=== PATIENT | male | born 1980 | race Caucasian/White ===

== ENCOUNTER 2020-12-03 14:36 | Inpatient (IN) | payer MEDICAID, SELFPAY ==
[~2020-12-03] VITALS: Ht 180.3 cm; Wt 63.5 kg
[2020-12-03 14:42] VITALS: BP 98/74
[2020-12-03] MEDS ORDERED: LORazepam 2 MG/ML VIAL IM ONE (15:30)
[2020-12-03] MEDS ORDERED: BUDE0.5S IH (16:35)
[2020-12-03] MEDS ORDERED: MONT4CTB PO (16:35)
[2020-12-03] MEDS ORDERED: LEVA0.6318 INH (16:35)
[2020-12-03] MEDS ORDERED: TRAM50TA1 PO (16:35)
[2020-12-03] MEDS ORDERED: CARB200T1 PO (16:35)
[2020-12-03] MEDS ORDERED: OMEP20EC11 PO (16:35)
[2020-12-03] MEDS ORDERED: ATRN INH (16:35)
[2020-12-03] MEDS ORDERED: ACET-1182 PO (16:35)
[2020-12-03] MEDS ORDERED: IBUP100T4 PO (16:35)
[2020-12-03] MEDS ORDERED: FERR325E14 PO (16:35)
[2020-12-03] MEDS ORDERED: TRAZ-343 PO (16:35)
[2020-12-03] MEDS ORDERED: ALBU1.25 IH (16:35)
[2020-12-03] MEDS ORDERED: ASCO500T95 PO (16:35)
[2020-12-03] MEDS ORDERED: FAMO-90 PO (16:35)
[2020-12-03] MEDS ORDERED: FLUT1DSK IH (16:35)
[2020-12-03 16:49] LABS: BASOPHILS # (AUTO) 0.1 K/uL (0.00-0.22); EOSINOPHILS # (AUTO) 1.7 K/uL (0-0.4); EOSINOPHILS % (AUTO) 19.3 % (0.0-4.0); HEMATOCRIT 42.1 % (36-52); LYMPHOCYTES # (AUTO) 1.8 K/uL (2.0-11.5); LYMPHOCYTES % (AUTO) 19.6 % (20.5-51.1); MEAN CORPUSCULAR HEMOGLOBIN 30 pg (27-31); MEAN CORPUSCULAR HGB CONC 33 g/dL (33-37); MONOCYTES # (AUTO) 1.3 K/uL (0.8-1.0); MONOCYTES % (AUTO) 14.1 % (1.7-9.3); NEUTROPHILS # (AUTO) 4.1 K/uL (1.8-7.7); PLATELET COUNT (AUTO) 318 K/uL (140-450); RED BLOOD CELL COUNT(AUTO) 4.73 MIL/uL (4.20-6.10); RED CELL DISTRIBUTION WIDTH 14.6 % (11.6-13.7)
[2020-12-03 16:58] LABS: ANION GAP 10.6 (8-16); CARBON DIOXIDE 31.7 mmol/L (21-32); CREATININE 0.9 mg/dL (0.6-1.3); POTASSIUM 4.3 mmol/L (3.5-5.1)
[2020-12-03 17:01] LABS: PROTHROMBIN TIME 9.9 secs (10.8-13.4)
[2020-12-03 17:05] LABS: ALBUMIN 3.4 g/dL (3.4-5.0); TOTAL BILIRUBIN 0.2 mg/dL (0.0-1.0)
[2020-12-03] MEDS ORDERED: MIDAZOLAM 2 MG/2 ML VIAL IM ONE (18:10)
[2020-12-03] MEDS ORDERED: HALOPERIDOL IM 5 MG/ML VIAL IM ONE (18:10)
[2020-12-03 19:51] LABS: APPEARANCE,URINE CLEAR (CLEAR); BILIRUBIN,URINE NEGATIVE (NEGATIVE); BLOOD, URINE TRACE-I (NEGATIVE); COLOR,URINE YELLOW (YELLOW); LEUKOCYTE ESTERASE ,URINE NEGATIVE (NEGATIVE); NITRITE, URINE NEGATIVE (NEGATIVE); PH,URINE 6.5 (5.0-9.0); UGLUCOSE NEGATIVE (NEGATIVE)
[2020-12-03 20:11] LABS: RBC,URINE 0-5 /HPF (0-5); WBC,URINE 0-5 /HPF (0-5)
[2020-12-03] MEDS ORDERED: ALBUTEROL SULFATE/IPRATROPIU 3 ML SOL IH ONE (21:00)
[2020-12-04] MEDS ORDERED: methylPREDNISolone SS 125 MG/2 ML VIAL IVP SCH (02:05)
[2020-12-04] MEDS ORDERED: LEVALBUTEROL 0.63 MG/3 ML NEBU INH PRN (02:30)
[2020-12-04] MEDS ORDERED: traMADol 50 MG TAB PO PRN (02:30)
[2020-12-04] MEDS ORDERED: IBUPROFEN 600 MG TAB PO PRN (02:30)
[2020-12-04] MEDS ORDERED: ACETAMINOPHEN 325 MG TAB PO PRN (02:30)
[2020-12-04] MEDS ORDERED: AZITHROMYCIN 500 MG in DEXTROSE 5% 250 ML IV SCH (02:30)
[2020-12-04] MEDS ORDERED: LORazepam 2 MG/ML VIAL IVP PRN (02:30)
[2020-12-04] MEDS ORDERED: ALBUTEROL 0.083% 2.5 MG/3 ML NEBU INH PRN (02:30)
[2020-12-04] MEDS ORDERED: ONDANSETRON 4 MG/2 ML VIAL IVP PRN (02:30)
[2020-12-04 04:00] VITALS: BP 105/66
[2020-12-04] MEDS ORDERED: cefTRIAXone 1,000 MG VIAL ONE (04:01)
[2020-12-04 04:27] LABS: HEMATOCRIT 39.7 % (36-52); HEMOGLOBIN 13.4 g/dL (12.0-18.0); MEAN CORPUSCULAR HEMOGLOBIN 30 pg (27-31); MEAN CORPUSCULAR HGB CONC 34 g/dL (33-37); MEAN CORPUSCULAR VOLUME 87.9 fL (80-94); PLATELET COUNT (AUTO) 271 K/uL (140-450); RED BLOOD CELL COUNT(AUTO) 4.52 MIL/uL (4.20-6.10); RED CELL DISTRIBUTION WIDTH 14.6 % (11.6-13.7); WHITE BLOOD COUNT (AUTO) 7.8 K/uL (4.8-10.8)
[2020-12-04] MEDS ORDERED: AZITHROMYCIN 500 MG INJ VIAL IV ONE (05:02)
[2020-12-04 05:14] LABS: ANION GAP 6.9 (8-16); CREATININE 0.9 mg/dL (0.6-1.3); POTASSIUM 3.9 mmol/L (3.5-5.1)
[2020-12-04 05:31] LABS: EOSINOPHILS % (MANUAL) 23 % (0-4); LYMPHOCYTES % (MANUAL) 19 % (20-46); MONOCYTES % (MANUAL) 5 % (5-12)
[2020-12-04] MEDS: IPRATROPIUM 0.02% 0.5 MG/2.5 ML NEBU INH SCH ×3 (05:34→20:42)
[2020-12-04 08:00] VITALS: BP 143/85
[2020-12-04] MEDS ORDERED: SALMETEROL IH SCH (09:00)
[2020-12-04] MEDS ORDERED: NON-FORMULARY ITEM (Omeprazole* (Prilosec*) 20 MG) PO SCH (09:00)
[2020-12-04] MEDS ORDERED: FLUTICASONE IH SCH (09:00)
[2020-12-04] MEDS: PANTOPRAZOLE 40 MG TABEC PO SCH (09:10)
[2020-12-04] MEDS: ASCORBIC ACID 500 MG TAB PO SCH ×2 (09:10→20:59)
[2020-12-04] MEDS: FAMOTIDINE 20 MG TAB PO SCH ×2 (09:10→21:00)
[2020-12-04] MEDS: carBAMazepine 200 MG TAB PO SCH ×2 (09:11→21:00)
[2020-12-04] MEDS: FERROUS SULFATE 325 MG TABEC PO SCH (09:23)
[2020-12-04] MEDS: BUDESONIDE 0.5 MG/2 ML NEBU INH SCH ×2 (09:27→20:42)
[2020-12-04 12:00] VITALS: BP 116/62
[2020-12-04 16:00] VITALS: BP 122/73
[2020-12-04] MEDS: MONTELUKAST SODIUM 10 MG TAB PO SCH (16:30)
[2020-12-04 20:00] VITALS: BP 114/54
[2020-12-04] MEDS ORDERED: IPRATROPIUM 0.02% 0.5 MG/2.5 ML NEBU INH ONE (20:29)
[2020-12-04] MEDS ORDERED: CRUSHER, PILL MC ONE (20:51)
[2020-12-04] MEDS: traZODone 50 MG TAB PO SCH (20:59)
[2020-12-05] VITALS: BP 106/65
[2020-12-05 04:00] VITALS: BP 113/60
[2020-12-05] MEDS: IPRATROPIUM 0.02% 0.5 MG/2.5 ML NEBU INH SCH ×3 (04:52→21:48)
[2020-12-05 05:50] LABS: BASOPHILS # (AUTO) 0.1 K/uL (0.00-0.22); BASOPHILS % (AUTO) 0.8 % (0.0-2.0); EOSINOPHILS # (AUTO) 1.1 K/uL (0-0.4); EOSINOPHILS % (AUTO) 11.8 % (0.0-4.0); HEMATOCRIT 42.4 % (36-52); HEMOGLOBIN 14.2 g/dL (12.0-18.0); LYMPHOCYTES # (AUTO) 2.1 K/uL (2.0-11.5); LYMPHOCYTES % (AUTO) 23.7 % (20.5-51.1); MEAN CORPUSCULAR HEMOGLOBIN 30 pg (27-31); MEAN CORPUSCULAR HGB CONC 34 g/dL (33-37); MEAN CORPUSCULAR VOLUME 88.1 fL (80-94); MONOCYTES # (AUTO) 1.3 K/uL (0.8-1.0); NEUTROPHILS # (AUTO) 4.5 K/uL (1.8-7.7); NEUTROPHILS % (AUTO) 49.7 % (42.2-75.2); PLATELET COUNT (AUTO) 326 K/uL (140-450); RED BLOOD CELL COUNT(AUTO) 4.81 MIL/uL (4.20-6.10); RED CELL DISTRIBUTION WIDTH 14.1 % (11.6-13.7)
[2020-12-05 06:31] LABS: CARBON DIOXIDE 30.1 mmol/L (21-32); CREATININE 0.8 mg/dL (0.6-1.3)
[2020-12-05 07:11] LABS: ANION GAP 9.5 (8-16); POTASSIUM 3.6 mmol/L (3.5-5.1)
[2020-12-05 08:00] VITALS: BP 115/74
[2020-12-05] MEDS: PANTOPRAZOLE 40 MG TABEC PO SCH (08:41)
[2020-12-05] MEDS: FAMOTIDINE 20 MG TAB PO SCH ×2 (08:41→20:12)
[2020-12-05] MEDS: FERROUS SULFATE 325 MG TABEC PO SCH (08:41)
[2020-12-05] MEDS: ASCORBIC ACID 500 MG TAB PO SCH ×2 (08:41→20:12)
[2020-12-05] MEDS: carBAMazepine 200 MG TAB PO SCH ×2 (08:42→20:12)
[2020-12-05] MEDS: BUDESONIDE 0.5 MG/2 ML NEBU INH SCH ×2 (09:29→21:48)
[2020-12-05 12:00] VITALS: BP 120/72
[2020-12-05 16:00] VITALS: BP 103/68
[2020-12-05] MEDS: MONTELUKAST SODIUM 10 MG TAB PO SCH (16:43)
[2020-12-05] MEDS ORDERED: LOVENOX 1MG/KG Q24H SUBQ SCH (19:25)
[2020-12-05 20:00] VITALS: BP 120/70
[2020-12-05] MEDS: ENOXAPARIN 60 MG/0.6 ML SYR SUBQ SCH (20:12)
[2020-12-05] MEDS: traZODone 50 MG TAB PO SCH (20:12)
[2020-12-06] VITALS: BP 112/72
[2020-12-06 04:00] VITALS: BP 147/93
[2020-12-06 07:01] LABS: ALBUMIN 3.4 g/dL (3.4-5.0); CARBON DIOXIDE 30.7 mmol/L (21-32); CREATININE 0.9 mg/dL (0.6-1.3); POTASSIUM 3.7 mmol/L (3.5-5.1); TOTAL BILIRUBIN 0.3 mg/dL (0.0-1.0)
[2020-12-06 07:11] LABS: HEMATOCRIT 42.2 % (36-52); HEMOGLOBIN 14.2 g/dL (12.0-18.0); MEAN CORPUSCULAR HEMOGLOBIN 30 pg (27-31); MEAN CORPUSCULAR HGB CONC 34 g/dL (33-37); MEAN CORPUSCULAR VOLUME 88.1 fL (80-94); PLATELET COUNT (AUTO) 312 K/uL (140-450); RED BLOOD CELL COUNT(AUTO) 4.79 MIL/uL (4.20-6.10); RED CELL DISTRIBUTION WIDTH 14.1 % (11.6-13.7)
[2020-12-06 07:49] LABS: EOSINOPHILS % (MANUAL) 25 % (0-4); LYMPHOCYTES % (MANUAL) 30 % (20-46); MONOCYTES % (MANUAL) 15 % (5-12)
[2020-12-06 08:00] VITALS: BP 144/67
[2020-12-06] MEDS: IPRATROPIUM 0.02% 0.5 MG/2.5 ML NEBU INH SCH (08:15)
[2020-12-06] MEDS: BUDESONIDE 0.5 MG/2 ML NEBU INH SCH (09:00)
[2020-12-06] MEDS: FAMOTIDINE 20 MG TAB PO SCH (09:54)
[2020-12-06] MEDS: carBAMazepine 200 MG TAB PO SCH (09:54)
[2020-12-06] MEDS: ENOXAPARIN 60 MG/0.6 ML SYR SUBQ SCH (09:55)
[2020-12-06] MEDS: FERROUS SULFATE 325 MG TABEC PO SCH (09:55)
[2020-12-06] MEDS: ASCORBIC ACID 500 MG TAB PO SCH (09:56)
[2020-12-06] MEDS: PANTOPRAZOLE 40 MG TABEC PO SCH (09:58)
[2020-12-06 12:00] VITALS: BP 111/73
== END 2020-12-06 14:05 | disposition home or self-care (01) | DRG 253 ==
LOC: MED 14:36 → MTU 21:12
PROVIDERS: ADMIT Preventive Medicine Preventive Medicine/Occupational Environmental Medicine; ATTEND Preventive Medicine Preventive Medicine/Occupational Environmental Medicine
DX: K62.5 Hemorrhage of anus and rectum (principal); M41.9 Scoliosis, unspecified; G80.9 Cerebral palsy, unspecified; J45.909 Unspecified asthma, uncomplicated; G40.909 Epilepsy, unspecified, not intractable, without status epilepticus; Z20.822 Contact with and (suspected) exposure to COVID-19; R06.03 Acute respiratory distress; K30 Functional dyspepsia; Z79.899 Other long term (current) drug therapy
CPT/HCPCS: 36415; 71045; 80048; 80053; 81001; 83690; 85025; 85610; 85651; 85730; 86140; 86870; 86886; 86900; 86901; 87040; 87081; 94640; 99285; J0456; J0696; J1630; J1650; J2060; J2250; J2930; J7060; J7614; J7626; J7644; Q9967

== ENCOUNTER 2022-04-06 20:20 | Emergency (ER) | payer MEDICAID ==
[~2022-04-06] VITALS: Ht 180.3 cm; Wt 64.9 kg
[~2022-04-06 20:20] MED LIST: ACET-1182 PO; ALBU1.25 IH; ASCO500T95 PO; ATRN INH; BUDE0.5S IH; CARB200T1 PO; FAMO-90 PO; FERR325E14 PO; FLUT1DSK IH; IBUP100T49 PO; LEVA0.6318 INH; MONT4CTB PO; OMEP20EC11 PO; TRAM50TA1 PO; TRAZ-343 PO
[2022-04-06 20:24] VITALS: BP 108/59
--- NOTE | 2022-04-06 20:24 | NUR ---
PT AL ALS. TAKEN TO BED 9
--- NOTE | 2022-04-06 20:30 | NUR ---
PT BIBA FOR LOW O2 AT SNF, PT PLACED IN ED 9 BY EMS, REPORT GIVEN BY MEDIC, PT PLACED ON MOVIE STAR, O2 88 % ON RA, PT PLACED ON 3L N/C.
[2022-04-06 21:21] LABS: BASOPHILS # (AUTO) 0.2 K/uL (0.00-0.22); BASOPHILS % (AUTO) 2.4 % (0.0-2.0); EOSINOPHILS # (AUTO) 1.2 K/uL (0-0.4); EOSINOPHILS % (AUTO) 14.5 % (0.0-4.0); HEMATOCRIT 44.1 % (36-52); LYMPHOCYTES # (AUTO) 2.3 K/uL (2.0-11.5); LYMPHOCYTES % (AUTO) 28.3 % (20.5-51.1); MEAN CORPUSCULAR HEMOGLOBIN 32 pg (27-31); MEAN CORPUSCULAR HGB CONC 34 g/dL (33-37); MEAN CORPUSCULAR VOLUME 93.1 fL (80-94); MONOCYTES # (AUTO) 1.3 K/uL (0.8-1.0); MONOCYTES % (AUTO) 15.4 % (1.7-9.3); NEUTROPHILS # (AUTO) 3.2 K/uL (1.8-7.7); NEUTROPHILS % (AUTO) 39.4 % (42.2-75.2); PLATELET COUNT (AUTO) 257 K/uL (140-450); RED BLOOD CELL COUNT(AUTO) 4.73 MIL/uL (4.20-6.10); RED CELL DISTRIBUTION WIDTH 12.7 % (11.6-13.7); WHITE BLOOD COUNT (AUTO) 8.2 K/uL (4.8-10.8)
--- NOTE | 2022-04-06 21:30 | NUR ---
X-Ray at bedside.
--- NOTE | 2022-04-06 21:42 | NUR ---
PT RESTING IN BED, NO DISTRESS OBSERVED.
[2022-04-06 21:45] LABS: ALBUMIN 3.5 g/dL (3.4-5.0); ANION GAP 6.2 (8-16); CARBON DIOXIDE 33.7 mmol/L (21-32); CREATININE 0.9 mg/dL (0.6-1.3); POTASSIUM 3.9 mmol/L (3.5-5.1); TOTAL BILIRUBIN 0.3 mg/dL (0.0-1.0)
--- NOTE | 2022-04-07 | NUR ---
PT IS DISCHARGED HOME, TRANSPORTATION UNAVAILABLE UNTIL [id number] DUE [facility] FOR [facility]XYGEN DEPENDENCY. PT RESTING IN BED, CONTINUE ON MONITOR.
--- NOTE | 2022-04-07 02:00 | NUR ---
PT CONTINUES TO REST, WARM BLANKET GIVEN TO PT, PT ON MONITOR, WAITING FOR TRANSPORT.
--- NOTE | 2022-04-07 07:11 | NUR ---
Report and continution of care received from ROSALIA Mendez
[2022-04-07 07:23] VITALS: BP 111/68
--- NOTE | 2022-04-07 07:41 | NUR ---
Ability caregiver at bedside for transportation home.
--- NOTE | 2022-04-07 07:45 | NUR ---
Patient discharged with v/s stable. Written and verbal after care instructions given and explained. Patient verbalized understanding. Ambulatory with by caregiver. All questions addressed prior to discharge. Advised to follow up with PMD. Copies of RAD, lab work given to caregiver.
== END 2022-04-07 07:45 | disposition home or self-care (01) ==
LOC: MED 20:20
DX: R09.02 Hypoxemia (principal); J45.909 Unspecified asthma, uncomplicated; G80.9 Cerebral palsy, unspecified
CPT/HCPCS: 36415; 71045; 80053; 83880; 84484; 85025; 93005; 99285

== ENCOUNTER 2023-04-17 12:39 | Inpatient (IN) | payer MEDICAID ==
[~2023-04-17] VITALS: Ht 170.2 cm; Wt 67.8 kg
[2023-04-17] VITALS (8 sets, daily range): BP systolic 98–105; BP diastolic 60–67; PULSE 90–112; RESP 16–28; TEMP 97.4–98; O2SAT 90–98
[~2023-04-17 12:39] MED LIST changes: -LEVA0.6318 INH; +LEVA0.6327 INH; +TRAM-748 PO; -TRAM50TA1 PO
[2023-04-17] MEDS ORDERED: NACL 0.9% 2,500 ML IV ONE (13:00)
[2023-04-17 13:27] LABS: BASOPHILS # (AUTO) 0.2 K/uL (0.00-0.22); BASOPHILS % (AUTO) 2.7 % (0.0-2.0); EOSINOPHILS # (AUTO) 0.2 K/uL (0-0.4); EOSINOPHILS % (AUTO) 2.2 % (0.0-4.0); HEMATOCRIT 46.7 % (36-52); HEMOGLOBIN 15.5 g/dL (12.0-18.0); LYMPHOCYTES # (AUTO) 1.1 K/uL (2.0-11.5); LYMPHOCYTES % (AUTO) 15.4 % (20.5-51.1); MEAN CORPUSCULAR HEMOGLOBIN 31 pg (27-31); MEAN CORPUSCULAR HGB CONC 33 g/dL (33-37); MEAN CORPUSCULAR VOLUME 94.1 fL (80-94); MONOCYTES # (AUTO) 0.4 K/uL (0.8-1.0); MONOCYTES % (AUTO) 5.1 % (1.7-9.3); NEUTROPHILS # (AUTO) 5.3 K/uL (1.8-7.7); NEUTROPHILS % (AUTO) 74.6 % (42.2-75.2); PLATELET COUNT (AUTO) 221 K/uL (140-450); RED BLOOD CELL COUNT(AUTO) 4.97 MIL/uL (4.20-6.10); RED CELL DISTRIBUTION WIDTH 13.1 % (11.6-13.7); WHITE BLOOD COUNT (AUTO) 7.1 K/uL (4.8-10.8)
[2023-04-17 13:41] LABS: ALBUMIN 4.1 g/dL (3.4-5.0); ANION GAP 8.5 (8-16); CALCIUM 9.1 mg/dL (8.5-10.1); CARBON DIOXIDE 37.4 mmol/L (21-32); CREATININE 0.7 mg/dL (0.6-1.3); POTASSIUM 3.9 mmol/L (3.5-5.1); TOTAL BILIRUBIN 0.2 mg/dL (0.0-1.0); TOTAL PROTEIN, SERUM 8.5 g/dL (6.4-8.2)
[2023-04-17] MEDS ORDERED: methylPREDNISolone SS 125 MG/2 ML VIAL IVP ONE (13:45)
[2023-04-17] MEDS ORDERED: ALBUTEROL SULFATE/IPRATROPIU 3 ML SOL IH ONE ×2 (13:45→15:25)
[2023-04-17] MEDS ORDERED: LEVOFLOXACIN 750 MG/D5W PREMIX 150 ML IV ONE (13:45)
[2023-04-17 13:49] LABS: LACTIC ACID 2.4 mmol/L (0.4-2.0)
[2023-04-17 13:53] LABS: INR 0.99 (0.8-1.2); PARTIAL THROMBOPLASTIN TIME 24.7 secs (22-35.6); PROTHROMBIN TIME 10.4 secs (10.8-13.4)
[2023-04-17 13:56] LABS: APPEARANCE,URINE CLEAR (CLEAR); BILIRUBIN,URINE NEGATIVE (NEGATIVE); BLOOD, URINE NEGATIVE (NEGATIVE); COLOR,URINE YELLOW (YELLOW); LEUKOCYTE ESTERASE ,URINE NEGATIVE (NEGATIVE); NITRITE, URINE NEGATIVE (NEGATIVE); PH,URINE 8.5 (5.0-9.0); PROTEIN,URINE TRACE (NEGATIVE); UGLUCOSE NEGATIVE (NEGATIVE); UROBILINOGEN,URINE 0.2 EU/dL (0.2 - 1)
[2023-04-17 14:01] LABS: BACTERIA,URINE OCCASSIONAL /HPF (None Seen); RBC,URINE 0-5 /HPF (0-5); SQUAMOUS EPITHELIAL CELL,UR 0-3 (FEW) /LPF (0-3 (FEW)); WBC,URINE 0-5 /HPF (0-5)
[2023-04-17 14:21] LABS: MAGNESIUM 1.8 mg/dL (1.8-2.4); PHOSPHORUS 3.7 mg/dL (2.5-4.9)
[2023-04-17 14:36] LABS: FLU A ANTIGEN negative (NEGATIVE); FLU B ANTIGEN NEGATIVE (NEGATIVE)
[2023-04-17] MEDS ORDERED: ACETAMINOPHEN 325 MG TAB PO PRN (18:10)
[2023-04-17] MEDS ORDERED: ONDANSETRON 4 MG/2 ML VIAL IVP PRN (18:10)
[2023-04-17] MEDS ORDERED: LORazepam 2 MG/ML VIAL IVP PRN (18:10)
[2023-04-17] MEDS ORDERED: IBUPROFEN 600 MG TAB PO PRN (18:10)
[2023-04-17] MEDS ORDERED: traMADol 50 MG TAB PO PRN (18:10)
[2023-04-17] MEDS: IPRATROPIUM 0.02% 0.5 MG/2.5 ML NEBU INH SCH (20:04)
[2023-04-17] MEDS: ALBUTEROL 0.083% 2.5 MG/3 ML NEBU INH SCH (20:04)
[2023-04-17] MEDS: carBAMazepine 200 MG TAB PO SCH (21:00)
[2023-04-17] MEDS: sulfaSALAzine 500 MG TAB PO SCH (21:00)
[2023-04-17] MEDS: ASCORBIC ACID 500 MG TAB PO SCH (21:00)
[2023-04-17] MEDS: carvediloL 6.25 MG TAB PO SCH (21:00)
[2023-04-17] MEDS: DIVALPROEX 500 MG TABEC PO SCH (21:00)
[2023-04-18] VITALS (11 sets, daily range): BP systolic 91–114; BP diastolic 54–75; PULSE 54–109; RESP 16–22; TEMP 97.6–98.8; O2SAT 88–98
[2023-04-18] MEDS: ALBUTEROL 0.083% 2.5 MG/3 ML NEBU INH SCH ×4 (01:07→20:00)
[2023-04-18] MEDS: IPRATROPIUM 0.02% 0.5 MG/2.5 ML NEBU INH SCH ×4 (01:07→20:00)
[2023-04-18] MEDS: methylPREDNISolone SS 40 MG/ML VIAL IVP SCH ×5 (06:00→18:15)
[2023-04-18 06:51] LABS: BASOPHILS # (AUTO) 0.1 K/uL (0.00-0.22); BASOPHILS % (AUTO) 1.2 % (0.0-2.0); EOSINOPHILS % (AUTO) 0.6 % (0.0-4.0); HEMATOCRIT 43.1 % (36-52); HEMOGLOBIN 14.1 g/dL (12.0-18.0); LYMPHOCYTES # (AUTO) 2.6 K/uL (2.0-11.5); LYMPHOCYTES % (AUTO) 38.1 % (20.5-51.1); MEAN CORPUSCULAR HEMOGLOBIN 31 pg (27-31); MEAN CORPUSCULAR HGB CONC 33 g/dL (33-37); MEAN CORPUSCULAR VOLUME 93.6 fL (80-94); MONOCYTES % (AUTO) 14.1 % (1.7-9.3); NEUTROPHILS # (AUTO) 3.1 K/uL (1.8-7.7); PLATELET COUNT (AUTO) 223 K/uL (140-450); WHITE BLOOD COUNT (AUTO) 6.8 K/uL (4.8-10.8)
[2023-04-18 07:09] LABS: ALBUMIN 3.8 g/dL (3.4-5.0); ANION GAP 10.9 (8-16); CALCIUM 9.1 mg/dL (8.5-10.1); CARBON DIOXIDE 34.7 mmol/L (21-32); CREATININE 0.8 mg/dL (0.6-1.3); MAGNESIUM 1.9 mg/dL (1.8-2.4); PHOSPHORUS 3.8 mg/dL (2.5-4.9); POTASSIUM 3.6 mmol/L (3.5-5.1); TOTAL BILIRUBIN 0.4 mg/dL (0.0-1.0); TOTAL PROTEIN, SERUM 7.9 g/dL (6.4-8.2)
[2023-04-18] MEDS ORDERED: AZITHROMYCIN 250 MG in DEXTROSE 5% 250 ML IV SCH (08:00)
[2023-04-18] MEDS: FERROUS SULFATE 325 MG TABEC PO SCH ×2 (11:30→18:09)
[2023-04-18] MEDS: PANTOPRAZOLE 40 MG TABEC PO SCH ×2 (11:31→21:00)
[2023-04-18] MEDS: ASCORBIC ACID 500 MG TAB PO SCH ×2 (11:31→21:00)
[2023-04-18] MEDS: carBAMazepine 200 MG TAB PO SCH ×2 (11:32→21:00)
[2023-04-18] MEDS: DIVALPROEX 500 MG TABEC PO SCH ×2 (11:32→21:00)
[2023-04-18] MEDS: VITAMIN D 400 IU TAB PO SCH (11:33)
[2023-04-18] MEDS: carvediloL 6.25 MG TAB PO SCH ×2 (11:36→21:00)
[2023-04-18] MEDS: sulfaSALAzine 500 MG TAB PO SCH ×4 (11:37→21:00)
[2023-04-18] MEDS: MONTELUKAST SODIUM 10 MG TAB PO SCH (18:09)
[2023-04-18] MEDS ORDERED: VANCOMYCIN PER PHARMACY MC PRN (20:15)
[2023-04-19] VITALS (13 sets, daily range): BP systolic 90–111; BP diastolic 52–87; PULSE 62–100; RESP 16–19; TEMP 97.1–98.5; O2SAT 90–96
[2023-04-19] MEDS ORDERED: PIPERACILLIN/TAZOBACTAM 3.375 GM in DEXTROSE 5% 50 ML IV SCH ×2
[2023-04-19] MEDS: IPRATROPIUM 0.02% 0.5 MG/2.5 ML NEBU INH SCH ×4 (02:12→19:36)
[2023-04-19] MEDS: ALBUTEROL 0.083% 2.5 MG/3 ML NEBU INH SCH ×4 (02:12→19:36)
[2023-04-19] MEDS: methylPREDNISolone SS 40 MG/ML VIAL IVP SCH ×4 (06:00→17:52)
[2023-04-19 06:22] LABS: BASOPHILS # (AUTO) 0.1 K/uL (0.00-0.22); EOSINOPHILS # (AUTO) 0.2 K/uL (0-0.4); EOSINOPHILS % (AUTO) 2.6 % (0.0-4.0); HEMATOCRIT 41.5 % (36-52); HEMOGLOBIN 13.7 g/dL (12.0-18.0); LYMPHOCYTES # (AUTO) 3.1 K/uL (2.0-11.5); LYMPHOCYTES % (AUTO) 42.1 % (20.5-51.1); MEAN CORPUSCULAR HEMOGLOBIN 31 pg (27-31); MEAN CORPUSCULAR HGB CONC 33 g/dL (33-37); MEAN CORPUSCULAR VOLUME 93.1 fL (80-94); MONOCYTES # (AUTO) 0.9 K/uL (0.8-1.0); MONOCYTES % (AUTO) 12.7 % (1.7-9.3); NEUTROPHILS % (AUTO) 40.6 % (42.2-75.2); PLATELET COUNT (AUTO) 199 K/uL (140-450); RED BLOOD CELL COUNT(AUTO) 4.45 MIL/uL (4.20-6.10); RED CELL DISTRIBUTION WIDTH 12.6 % (11.6-13.7)
[2023-04-19 06:40] LABS: CALCIUM 8.8 mg/dL (8.5-10.1); CARBON DIOXIDE 35.4 mmol/L (21-32); CREATININE 0.8 mg/dL (0.6-1.3); POTASSIUM 3.4 mmol/L (3.5-5.1)
[2023-04-19] MEDS: FERROUS SULFATE 325 MG TABEC PO SCH ×2 (08:00→18:05)
[2023-04-19] MEDS: DIVALPROEX 500 MG TABEC PO SCH ×2 (09:00→23:16)
[2023-04-19] MEDS: PANTOPRAZOLE 40 MG TABEC PO SCH ×3 (09:00→23:17)
[2023-04-19] MEDS: ASCORBIC ACID 500 MG TAB PO SCH ×3 (09:00→23:17)
[2023-04-19] MEDS: VITAMIN D 400 IU TAB PO SCH (09:00)
[2023-04-19] MEDS: carBAMazepine 200 MG TAB PO SCH ×3 (09:00→23:17)
[2023-04-19] MEDS: PIPERACILLIN/TAZOBACTAM 3.375 GM in DEXTROSE 5% 50 ML IV SCH ×2 (09:00→18:12)
[2023-04-19] MEDS: sulfaSALAzine 500 MG TAB PO SCH ×4 (09:00→23:16)
[2023-04-19] MEDS: carvediloL 6.25 MG TAB PO SCH ×2 (09:00→23:16)
[2023-04-19] MEDS ORDERED: POTASSIUM CHLORIDE 10 MEQ TABER PO SCH (10:00)
[2023-04-19] MEDS ORDERED: VANCOMYCIN 1.25GM PREMIX 250 ML IV SCH (16:00)
[2023-04-19] MEDS ORDERED: VANCOMYCIN HCL 1.25 GM in DEXTROSE 5% 250 ML IV SCH (16:00)
[2023-04-19] MEDS ORDERED: POTASSIUM CHLORIDE 20% 40 MEQ/15 ML UDC PO SCH (17:50)
[2023-04-19] MEDS: MONTELUKAST SODIUM 10 MG TAB PO SCH (18:07)
[2023-04-19] MEDS ORDERED: POTASSIUM CHLORIDE 40 MEQ, LIDOCAINE 1% 25 MG in NACL 0.9% 250 ML IV SCH (19:00)
[2023-04-20] VITALS (12 sets, daily range): BP systolic 100–118; BP diastolic 66–76; PULSE 73–102; RESP 16–20; TEMP 98.4–98.9; O2SAT 91–98
[2023-04-20] MEDS: ALBUTEROL 0.083% 2.5 MG/3 ML NEBU INH SCH ×3 (00:34→14:19)
[2023-04-20] MEDS: IPRATROPIUM 0.02% 0.5 MG/2.5 ML NEBU INH SCH ×3 (00:34→14:19)
[2023-04-20] MEDS: PIPERACILLIN/TAZOBACTAM 3.375 GM in DEXTROSE 5% 50 ML IV SCH ×4 (00:58→17:53)
[2023-04-20] MEDS: methylPREDNISolone SS 40 MG/ML VIAL IVP SCH ×4 (00:58→17:54)
[2023-04-20 06:23] LABS: BASOPHILS % (AUTO) 0.4 % (0.0-2.0); EOSINOPHILS % (AUTO) 0.1 % (0.0-4.0); HEMATOCRIT 45.4 % (36-52); HEMOGLOBIN 15.2 g/dL (12.0-18.0); LYMPHOCYTES # (AUTO) 1.4 K/uL (2.0-11.5); LYMPHOCYTES % (AUTO) 20.6 % (20.5-51.1); MEAN CORPUSCULAR HEMOGLOBIN 31 pg (27-31); MEAN CORPUSCULAR HGB CONC 33 g/dL (33-37); MEAN CORPUSCULAR VOLUME 92.8 fL (80-94); MONOCYTES # (AUTO) 0.3 K/uL (0.8-1.0); MONOCYTES % (AUTO) 4.8 % (1.7-9.3); NEUTROPHILS % (AUTO) 74.1 % (42.2-75.2); PLATELET COUNT (AUTO) 245 K/uL (140-450); RED CELL DISTRIBUTION WIDTH 12.7 % (11.6-13.7); WHITE BLOOD COUNT (AUTO) 6.7 K/uL (4.8-10.8)
[2023-04-20 06:52] LABS: ALBUMIN 4.1 g/dL (3.4-5.0); ANION GAP 13.8 (8-16); CALCIUM 9.1 mg/dL (8.5-10.1); CARBON DIOXIDE 30.9 mmol/L (21-32); CREATININE 0.8 mg/dL (0.6-1.3); POTASSIUM 4.7 mmol/L (3.5-5.1)
[2023-04-20 07:30] LABS: TOTAL BILIRUBIN 0.4 mg/dL (0.0-1.0)
[2023-04-20 07:32] LABS: TOTAL PROTEIN, SERUM 8.4 g/dL (6.4-8.2)
[2023-04-20] MEDS: FERROUS SULFATE 325 MG TABEC PO SCH ×2 (09:27→17:54)
[2023-04-20] MEDS: carBAMazepine 200 MG TAB PO SCH ×2 (09:27→20:47)
[2023-04-20] MEDS: DIVALPROEX 500 MG TABEC PO SCH ×2 (09:27→20:47)
[2023-04-20] MEDS: ASCORBIC ACID 500 MG TAB PO SCH ×2 (09:27→20:47)
[2023-04-20] MEDS: PANTOPRAZOLE 40 MG TABEC PO SCH ×2 (09:27→20:47)
[2023-04-20] MEDS: VITAMIN D 400 IU TAB PO SCH (09:28)
[2023-04-20] MEDS: carvediloL 6.25 MG TAB PO SCH ×2 (09:28→20:47)
[2023-04-20] MEDS: sulfaSALAzine 500 MG TAB PO SCH ×4 (09:29→20:47)
[2023-04-20] MEDS: MONTELUKAST SODIUM 10 MG TAB PO SCH (17:54)
[2023-04-20] MEDS: ALBUTEROL SULFATE/IPRATROPIU 3 ML SOL IH SCH (20:27)
[2023-04-21] VITALS (10 sets, daily range): BP systolic 97–134; BP diastolic 57–89; PULSE 62–106; RESP 16–20; TEMP 96.9–99; O2SAT 88–99
[2023-04-21] MEDS: ALBUTEROL SULFATE/IPRATROPIU 3 ML SOL IH SCH ×4 (00:24→19:50)
[2023-04-21] MEDS: PIPERACILLIN/TAZOBACTAM 3.375 GM in DEXTROSE 5% 50 ML IV SCH ×4 (00:39→17:29)
[2023-04-21] MEDS: methylPREDNISolone SS 40 MG/ML VIAL IVP SCH ×4 (00:41→17:29)
[2023-04-21 07:00] LABS: BASOPHILS % (AUTO) 0.4 % (0.0-2.0); HEMATOCRIT 43.5 % (36-52); HEMOGLOBIN 14.3 g/dL (12.0-18.0); LYMPHOCYTES # (AUTO) 1.5 K/uL (2.0-11.5); LYMPHOCYTES % (AUTO) 20.7 % (20.5-51.1); MEAN CORPUSCULAR HEMOGLOBIN 31 pg (27-31); MEAN CORPUSCULAR HGB CONC 33 g/dL (33-37); MEAN CORPUSCULAR VOLUME 94.1 fL (80-94); MONOCYTES # (AUTO) 0.5 K/uL (0.8-1.0); MONOCYTES % (AUTO) 7.2 % (1.7-9.3); NEUTROPHILS # (AUTO) 5.2 K/uL (1.8-7.7); NEUTROPHILS % (AUTO) 71.7 % (42.2-75.2); PLATELET COUNT (AUTO) 240 K/uL (140-450); RED BLOOD CELL COUNT(AUTO) 4.63 MIL/uL (4.20-6.10); RED CELL DISTRIBUTION WIDTH 12.8 % (11.6-13.7); WHITE BLOOD COUNT (AUTO) 7.3 K/uL (4.8-10.8)
[2023-04-21] MEDS: FERROUS SULFATE 325 MG TABEC PO SCH ×3 (08:00→16:31)
[2023-04-21] MEDS: PANTOPRAZOLE 40 MG TABEC PO SCH ×3 (08:53→21:00)
[2023-04-21] MEDS: DIVALPROEX 500 MG TABEC PO SCH ×2 (08:53→21:00)
[2023-04-21] MEDS: sulfaSALAzine 500 MG TAB PO SCH ×5 (08:53→21:00)
[2023-04-21] MEDS: carBAMazepine 200 MG TAB PO SCH ×3 (08:53→21:00)
[2023-04-21] MEDS: ASCORBIC ACID 500 MG TAB PO SCH ×2 (08:53→21:00)
[2023-04-21] MEDS: VITAMIN D 400 IU TAB PO SCH (08:54)
[2023-04-21] MEDS: carvediloL 6.25 MG TAB PO SCH ×2 (08:57→21:00)
[2023-04-21] MEDS: MONTELUKAST SODIUM 10 MG TAB PO SCH (17:00)
[2023-04-22] VITALS (8 sets, daily range): BP systolic 98–134; BP diastolic 77–89; PULSE 67–100; RESP 16–20; TEMP 97.1–98.2; O2SAT 88–97
[2023-04-22] MEDS: ALBUTEROL SULFATE/IPRATROPIU 3 ML SOL IH SCH ×4 (01:35→19:41)
[2023-04-22] MEDS: PIPERACILLIN/TAZOBACTAM 3.375 GM in DEXTROSE 5% 50 ML IV SCH ×5 (06:00→17:01)
[2023-04-22] MEDS: methylPREDNISolone SS 40 MG/ML VIAL IVP SCH ×5 (06:00→21:00)
[2023-04-22 06:41] LABS: BASOPHILS % (AUTO) 0.2 % (0.0-2.0); EOSINOPHILS % (AUTO) 0.3 % (0.0-4.0); HEMOGLOBIN 14.8 g/dL (12.0-18.0); LYMPHOCYTES # (AUTO) 3.6 K/uL (2.0-11.5); LYMPHOCYTES % (AUTO) 35.7 % (20.5-51.1); MEAN CORPUSCULAR HEMOGLOBIN 31 pg (27-31); MEAN CORPUSCULAR HGB CONC 34 g/dL (33-37); MEAN CORPUSCULAR VOLUME 92.7 fL (80-94); MONOCYTES # (AUTO) 1.4 K/uL (0.8-1.0); MONOCYTES % (AUTO) 13.4 % (1.7-9.3); NEUTROPHILS # (AUTO) 5.1 K/uL (1.8-7.7); NEUTROPHILS % (AUTO) 50.4 % (42.2-75.2); PLATELET COUNT (AUTO) 243 K/uL (140-450); RED BLOOD CELL COUNT(AUTO) 4.75 MIL/uL (4.20-6.10); RED CELL DISTRIBUTION WIDTH 12.9 % (11.6-13.7); WHITE BLOOD COUNT (AUTO) 10.1 K/uL (4.8-10.8)
[2023-04-22 07:02] LABS: ANION GAP 15.2 (8-16); CALCIUM 9.4 mg/dL (8.5-10.1); CARBON DIOXIDE 30.4 mmol/L (21-32); CREATININE 0.8 mg/dL (0.6-1.3); POTASSIUM 3.6 mmol/L (3.5-5.1)
[2023-04-22] MEDS: FERROUS SULFATE 325 MG TABEC PO SCH ×3 (08:00→17:00)
[2023-04-22] MEDS: ASCORBIC ACID 500 MG TAB PO SCH ×3 (08:40→21:00)
[2023-04-22] MEDS: carBAMazepine 200 MG TAB PO SCH ×3 (08:40→21:00)
[2023-04-22] MEDS: carvediloL 6.25 MG TAB PO SCH ×3 (08:40→21:00)
[2023-04-22] MEDS: sulfaSALAzine 500 MG TAB PO SCH ×5 (08:41→21:00)
[2023-04-22] MEDS: PANTOPRAZOLE 40 MG TABEC PO SCH ×3 (08:41→21:00)
[2023-04-22] MEDS: DIVALPROEX 500 MG TABEC PO SCH ×3 (08:41→21:00)
[2023-04-22] MEDS: VITAMIN D 400 IU TAB PO SCH (08:44)
[2023-04-22] MEDS: MONTELUKAST SODIUM 10 MG TAB PO SCH (17:00)
[2023-04-23] VITALS (8 sets, daily range): BP systolic 90–130; BP diastolic 52–70; PULSE 74–104; RESP 17–22; TEMP 96.8–98.5; O2SAT 89–99
[2023-04-23] MEDS: ALBUTEROL SULFATE/IPRATROPIU 3 ML SOL IH SCH ×4 (03:16→19:02)
[2023-04-23] MEDS: PIPERACILLIN/TAZOBACTAM 3.375 GM in DEXTROSE 5% 50 ML IV SCH ×5 (06:00→18:00)
[2023-04-23 06:45] LABS: BASOPHILS # (AUTO) 0.1 K/uL (0.00-0.22); BASOPHILS % (AUTO) 1.4 % (0.0-2.0); EOSINOPHILS # (AUTO) 0.3 K/uL (0-0.4); EOSINOPHILS % (AUTO) 3.6 % (0.0-4.0); HEMATOCRIT 44.9 % (36-52); LYMPHOCYTES # (AUTO) 1.7 K/uL (2.0-11.5); LYMPHOCYTES % (AUTO) 20.1 % (20.5-51.1); MEAN CORPUSCULAR HEMOGLOBIN 31 pg (27-31); MEAN CORPUSCULAR HGB CONC 33 g/dL (33-37); MEAN CORPUSCULAR VOLUME 94.1 fL (80-94); MONOCYTES % (AUTO) 11.8 % (1.7-9.3); NEUTROPHILS # (AUTO) 5.2 K/uL (1.8-7.7); NEUTROPHILS % (AUTO) 63.1 % (42.2-75.2); PLATELET COUNT (AUTO) 230 K/uL (140-450); RED BLOOD CELL COUNT(AUTO) 4.78 MIL/uL (4.20-6.10); RED CELL DISTRIBUTION WIDTH 12.8 % (11.6-13.7); WHITE BLOOD COUNT (AUTO) 8.3 K/uL (4.8-10.8)
[2023-04-23 07:08] LABS: ALBUMIN 4.2 g/dL (3.4-5.0); ANION GAP 16.2 (8-16); CALCIUM 9.2 mg/dL (8.5-10.1); CARBON DIOXIDE 28.5 mmol/L (21-32); CREATININE 0.8 mg/dL (0.6-1.3); POTASSIUM 3.7 mmol/L (3.5-5.1); TOTAL BILIRUBIN 0.6 mg/dL (0.0-1.0); TOTAL PROTEIN, SERUM 7.9 g/dL (6.4-8.2)
[2023-04-23] MEDS: FERROUS SULFATE 325 MG TABEC PO SCH ×2 (08:00→18:05)
[2023-04-23] MEDS: sulfaSALAzine 500 MG TAB PO SCH ×5 (09:00→23:56)
[2023-04-23] MEDS: methylPREDNISolone SS 40 MG/ML VIAL IVP SCH ×2 (09:00→21:00)
[2023-04-23] MEDS: VITAMIN D 400 IU TAB PO SCH (09:51)
[2023-04-23] MEDS: PANTOPRAZOLE 40 MG TABEC PO SCH ×3 (09:51→23:57)
[2023-04-23] MEDS: carvediloL 6.25 MG TAB PO SCH ×3 (09:51→23:57)
[2023-04-23] MEDS: DIVALPROEX 500 MG TABEC PO SCH ×3 (09:51→23:57)
[2023-04-23] MEDS: ASCORBIC ACID 500 MG TAB PO SCH (09:52)
[2023-04-23] MEDS: carBAMazepine 200 MG TAB PO SCH ×3 (09:52→23:58)
[2023-04-23] MEDS: MONTELUKAST SODIUM 10 MG TAB PO SCH (18:05)
[2023-04-24] VITALS (9 sets, daily range): BP systolic 90–133; BP diastolic 54–76; PULSE 63–122; RESP 16–20; TEMP 97.9–98.7; O2SAT 89–100
[2023-04-24] MEDS: ASCORBIC ACID 500 MG TAB PO SCH ×5 (00:02→21:00)
[2023-04-24] MEDS: ALBUTEROL SULFATE/IPRATROPIU 3 ML SOL IH SCH ×4 (01:09→20:00)
[2023-04-24] MEDS ORDERED: LORazepam 2 MG/ML VIAL ONE (01:26)
[2023-04-24] MEDS: LORazepam 2 MG/ML VIAL IM/IVP PRN (01:34)
[2023-04-24] MEDS ORDERED: HYDRAGUARD CREAM TP PRN (05:15)
[2023-04-24] MEDS: PIPERACILLIN/TAZOBACTAM 3.375 GM in DEXTROSE 5% 50 ML IV SCH ×6 (05:30→23:33)
[2023-04-24 06:45] LABS: BASOPHILS # (AUTO) 0.1 K/uL (0.00-0.22); BASOPHILS % (AUTO) 0.4 % (0.0-2.0); HEMATOCRIT 44.9 % (36-52); HEMOGLOBIN 14.6 g/dL (12.0-18.0); LYMPHOCYTES # (AUTO) 1.3 K/uL (2.0-11.5); LYMPHOCYTES % (AUTO) 8.7 % (20.5-51.1); MEAN CORPUSCULAR HEMOGLOBIN 31 pg (27-31); MEAN CORPUSCULAR HGB CONC 33 g/dL (33-37); MEAN CORPUSCULAR VOLUME 94.8 fL (80-94); MONOCYTES # (AUTO) 1.7 K/uL (0.8-1.0); MONOCYTES % (AUTO) 11.6 % (1.7-9.3); NEUTROPHILS # (AUTO) 11.5 K/uL (1.8-7.7); NEUTROPHILS % (AUTO) 79.3 % (42.2-75.2); PLATELET COUNT (AUTO) 234 K/uL (140-450); RED BLOOD CELL COUNT(AUTO) 4.74 MIL/uL (4.20-6.10); RED CELL DISTRIBUTION WIDTH 12.8 % (11.6-13.7); WHITE BLOOD COUNT (AUTO) 14.5 K/uL (4.8-10.8)
[2023-04-24 06:59] LABS: ANION GAP 22.3 (8-16); CARBON DIOXIDE 22.7 mmol/L (21-32)
[2023-04-24] MEDS: FERROUS SULFATE 325 MG TABEC PO SCH ×2 (08:00→17:00)
[2023-04-24] MEDS: sulfaSALAzine 500 MG TAB PO SCH ×6 (09:00→21:00)
[2023-04-24] MEDS: methylPREDNISolone SS 40 MG/ML VIAL IVP SCH ×2 (09:00→20:31)
[2023-04-24] MEDS: carBAMazepine 200 MG TAB PO SCH ×3 (09:00→21:00)
[2023-04-24] MEDS: VITAMIN D 400 IU TAB PO SCH ×2 (09:00)
[2023-04-24] MEDS: carvediloL 6.25 MG TAB PO SCH ×3 (09:00→21:00)
[2023-04-24] MEDS: PANTOPRAZOLE 40 MG TABEC PO SCH ×3 (09:00→21:00)
[2023-04-24] MEDS: DIVALPROEX 500 MG TABEC PO SCH ×4 (09:00→21:00)
[2023-04-24] MEDS: MONTELUKAST SODIUM 10 MG TAB PO SCH (17:00)
[2023-04-25] VITALS (9 sets, daily range): BP systolic 100–122; BP diastolic 60–72; PULSE 68–141; RESP 16–21; TEMP 97.6–99.3; O2SAT 92–100
[2023-04-25] MEDS: ALBUTEROL SULFATE/IPRATROPIU 3 ML SOL IH SCH ×4 (00:55→18:47)
[2023-04-25] MEDS: PIPERACILLIN/TAZOBACTAM 3.375 GM in DEXTROSE 5% 50 ML IV SCH ×4 (05:43→23:58)
[2023-04-25 07:05] LABS: BASOPHILS % (AUTO) 0.2 % (0.0-2.0); EOSINOPHILS % (AUTO) 0.1 % (0.0-4.0); HEMATOCRIT 44.3 % (36-52); HEMOGLOBIN 14.7 g/dL (12.0-18.0); LYMPHOCYTES # (AUTO) 0.8 K/uL (2.0-11.5); LYMPHOCYTES % (AUTO) 9.2 % (20.5-51.1); MEAN CORPUSCULAR HEMOGLOBIN 31 pg (27-31); MEAN CORPUSCULAR HGB CONC 33 g/dL (33-37); MEAN CORPUSCULAR VOLUME 93.7 fL (80-94); MONOCYTES # (AUTO) 0.7 K/uL (0.8-1.0); MONOCYTES % (AUTO) 7.5 % (1.7-9.3); NEUTROPHILS # (AUTO) 7.2 K/uL (1.8-7.7); PLATELET COUNT (AUTO) 227 K/uL (140-450); RED BLOOD CELL COUNT(AUTO) 4.73 MIL/uL (4.20-6.10); RED CELL DISTRIBUTION WIDTH 12.6 % (11.6-13.7); WHITE BLOOD COUNT (AUTO) 8.7 K/uL (4.8-10.8)
[2023-04-25 07:08] LABS: ANION GAP 16.7 (8-16); CALCIUM 9.2 mg/dL (8.5-10.1); POTASSIUM 3.7 mmol/L (3.5-5.1)
[2023-04-25] MEDS: methylPREDNISolone SS 40 MG/ML VIAL IVP SCH ×2 (08:37→20:54)
[2023-04-25] MEDS: FERROUS SULFATE 325 MG TABEC PO SCH ×2 (08:45→17:04)
[2023-04-25] MEDS: carBAMazepine 200 MG TAB PO SCH ×2 (08:55→20:53)
[2023-04-25] MEDS: sulfaSALAzine 500 MG TAB PO SCH ×4 (08:55→20:53)
[2023-04-25] MEDS: carvediloL 6.25 MG TAB PO SCH ×2 (08:55→20:53)
[2023-04-25] MEDS: PANTOPRAZOLE 40 MG TABEC PO SCH ×2 (08:55→20:53)
[2023-04-25] MEDS: ASCORBIC ACID 500 MG TAB PO SCH ×2 (08:55→20:53)
[2023-04-25] MEDS: DIVALPROEX 500 MG TABEC PO SCH ×2 (08:55→20:52)
[2023-04-25] MEDS: VITAMIN D 400 IU TAB PO SCH (08:55)
[2023-04-25] MEDS: LORazepam 2 MG/ML VIAL IM/IVP PRN (10:36)
[2023-04-25] MEDS: MONTELUKAST SODIUM 10 MG TAB PO SCH (17:04)
[2023-04-26] VITALS (10 sets, daily range): BP systolic 90–116; BP diastolic 52–74; PULSE 85–126; RESP 15–18; TEMP 96.4–99.3; O2SAT 92–99
[2023-04-26] MEDS: ALBUTEROL SULFATE/IPRATROPIU 3 ML SOL IH SCH ×4 (00:22→20:41)
[2023-04-26] MEDS: PIPERACILLIN/TAZOBACTAM 3.375 GM in DEXTROSE 5% 50 ML IV SCH ×3 (05:13→18:00)
[2023-04-26 06:53] LABS: HEMATOCRIT 42.1 % (36-52); HEMOGLOBIN 13.9 g/dL (12.0-18.0); LYMPHOCYTES # (AUTO) 0.8 K/uL (2.0-11.5); MEAN CORPUSCULAR HEMOGLOBIN 31 pg (27-31); MEAN CORPUSCULAR HGB CONC 33 g/dL (33-37); MEAN CORPUSCULAR VOLUME 93.8 fL (80-94); MONOCYTES # (AUTO) 0.8 K/uL (0.8-1.0); MONOCYTES % (AUTO) 8.4 % (1.7-9.3); NEUTROPHILS # (AUTO) 7.6 K/uL (1.8-7.7); NEUTROPHILS % (AUTO) 82.6 % (42.2-75.2); PLATELET COUNT (AUTO) 201 K/uL (140-450); RED BLOOD CELL COUNT(AUTO) 4.49 MIL/uL (4.20-6.10); RED CELL DISTRIBUTION WIDTH 12.6 % (11.6-13.7); WHITE BLOOD COUNT (AUTO) 9.2 K/uL (4.8-10.8)
[2023-04-26 06:59] LABS: ANION GAP 9.6 (8-16); CALCIUM 8.9 mg/dL (8.5-10.1); CARBON DIOXIDE 33.7 mmol/L (21-32); CREATININE 0.8 mg/dL (0.6-1.3); POTASSIUM 3.3 mmol/L (3.5-5.1)
[2023-04-26] MEDS: carvediloL 6.25 MG TAB PO SCH (09:04)
[2023-04-26] MEDS: PANTOPRAZOLE 40 MG TABEC PO SCH ×2 (09:05→21:02)
[2023-04-26] MEDS: carBAMazepine 200 MG TAB PO SCH ×2 (09:05→21:02)
[2023-04-26] MEDS: DIVALPROEX 500 MG TABEC PO SCH ×2 (09:06→20:58)
[2023-04-26] MEDS: ASCORBIC ACID 500 MG TAB PO SCH ×2 (09:06→21:02)
[2023-04-26] MEDS: sulfaSALAzine 500 MG TAB PO SCH ×4 (09:07→21:04)
[2023-04-26] MEDS: FERROUS SULFATE 325 MG TABEC PO SCH ×2 (09:07→17:09)
[2023-04-26] MEDS: VITAMIN D 400 IU TAB PO SCH (09:21)
[2023-04-26] MEDS ORDERED: POTASSIUM CHLORIDE 10 MEQ TABER PO SCH (09:38)
[2023-04-26] MEDS: methylPREDNISolone SS 40 MG/ML VIAL IVP SCH ×2 (09:54→20:55)
[2023-04-26] MEDS ORDERED: POTASSIUM CHLORIDE 20% 40 MEQ/15 ML UDC PO SCH (10:23)
[2023-04-26] MEDS: DILTIAZEM 30 MG TAB PO SCH ×2 (13:10→20:58)
[2023-04-26] MEDS: LORazepam 2 MG/ML VIAL IM/IVP PRN (14:59)
[2023-04-26] MEDS: MONTELUKAST SODIUM 10 MG TAB PO SCH (17:09)
[2023-04-26] MEDS ORDERED: VALPROIC ACID 250 MG/5 ML UDC GT SCH (21:00)
[2023-04-27] VITALS (13 sets, daily range): BP systolic 92–117; BP diastolic 54–79; PULSE 86–146; RESP 16–37; TEMP 97.7–98.7; O2SAT 4–100
[2023-04-27] MEDS: LORazepam 2 MG/ML VIAL IM/IVP PRN ×3 (00:11→22:44)
[2023-04-27] MEDS: PIPERACILLIN/TAZOBACTAM 3.375 GM in DEXTROSE 5% 50 ML IV SCH ×5 (00:11→23:40)
[2023-04-27] MEDS: ALBUTEROL SULFATE/IPRATROPIU 3 ML SOL IH SCH ×4 (00:15→19:40)
[2023-04-27] MEDS: DILTIAZEM 30 MG TAB PO SCH ×2 (04:51→13:54)
[2023-04-27 06:47] LABS: BASOPHILS % (AUTO) 0.1 % (0.0-2.0); HEMOGLOBIN 13.7 g/dL (12.0-18.0); LYMPHOCYTES # (AUTO) 1.7 K/uL (2.0-11.5); MEAN CORPUSCULAR HEMOGLOBIN 31 pg (27-31); MEAN CORPUSCULAR HGB CONC 33 g/dL (33-37); MEAN CORPUSCULAR VOLUME 94.2 fL (80-94); MONOCYTES # (AUTO) 0.8 K/uL (0.8-1.0); MONOCYTES % (AUTO) 9.1 % (1.7-9.3); NEUTROPHILS # (AUTO) 6.3 K/uL (1.8-7.7); NEUTROPHILS % (AUTO) 71.8 % (42.2-75.2); PLATELET COUNT (AUTO) 198 K/uL (140-450); RED BLOOD CELL COUNT(AUTO) 4.46 MIL/uL (4.20-6.10); RED CELL DISTRIBUTION WIDTH 12.9 % (11.6-13.7); WHITE BLOOD COUNT (AUTO) 8.7 K/uL (4.8-10.8)
[2023-04-27 07:16] LABS: ALBUMIN 3.2 g/dL (3.4-5.0); ANION GAP 10.4 (8-16); CALCIUM 8.6 mg/dL (8.5-10.1); CARBON DIOXIDE 35.2 mmol/L (21-32); CREATININE 0.9 mg/dL (0.6-1.3); MAGNESIUM 2.1 mg/dL (1.8-2.4); PHOSPHORUS 3.3 mg/dL (2.5-4.9); POTASSIUM 3.6 mmol/L (3.5-5.1); TOTAL BILIRUBIN 0.4 mg/dL (0.0-1.0); TOTAL PROTEIN, SERUM 7.1 g/dL (6.4-8.2)
[2023-04-27] MEDS: carBAMazepine 200 MG TAB PO SCH ×2 (09:50→20:27)
[2023-04-27] MEDS: methylPREDNISolone SS 40 MG/ML VIAL IVP SCH ×2 (09:50→20:29)
[2023-04-27] MEDS: VITAMIN D 400 IU TAB PO SCH (09:51)
[2023-04-27] MEDS: PANTOPRAZOLE 40 MG TABEC PO SCH ×2 (09:51→20:28)
[2023-04-27] MEDS: ASCORBIC ACID 500 MG TAB PO SCH ×2 (09:51→20:30)
[2023-04-27] MEDS: DIVALPROEX 500 MG TABEC PO SCH ×2 (09:52→20:27)
[2023-04-27] MEDS: FERROUS SULFATE 325 MG TABEC PO SCH ×2 (09:56→17:51)
[2023-04-27] MEDS: sulfaSALAzine 500 MG TAB PO SCH ×4 (09:59→20:30)
[2023-04-27 13:57] LABS: BLOOD GAS PH 7.425 (7.35-7.45)
[2023-04-27 13:58] LABS: BLOOD GAS BASE EXCESS 9.8 mmol/L (-2.0-2.0); BLOOD GAS HCO3 36.6 mmol/L (22-26); BLOOD GAS PO2 60.3 mmHg (75-100)
[2023-04-27 13:59] LABS: BLOOD GAS O2 SAT% 91.7 % (92.0-98.5)
[2023-04-27] MEDS: MONTELUKAST SODIUM 10 MG TAB PO SCH (17:51)
[2023-04-27] MEDS: DILTIAZEM 60 MG TAB PO SCH (20:29)
[2023-04-28] VITALS (16 sets, daily range): BP systolic 91–126; BP diastolic 54–86; PULSE 99–140; RESP 18–33; TEMP 97.1–99.9; O2SAT 94–100
[2023-04-28] MEDS: ALBUTEROL SULFATE/IPRATROPIU 3 ML SOL IH SCH ×4 (01:26→19:08)
[2023-04-28] MEDS: DILTIAZEM 60 MG TAB PO SCH ×3 (04:18→20:38)
[2023-04-28] MEDS: PIPERACILLIN/TAZOBACTAM 3.375 GM in DEXTROSE 5% 50 ML IV SCH ×3 (05:11→17:54)
[2023-04-28] MEDS: DEXT 5% / NACL 0.45% 1,000 ML IV SCH ×3 (05:42→23:05)
[2023-04-28 06:48] LABS: HEMATOCRIT 41.9 % (36-52); HEMOGLOBIN 13.5 g/dL (12.0-18.0); LYMPHOCYTES # (AUTO) 1.2 K/uL (2.0-11.5); LYMPHOCYTES % (AUTO) 7.3 % (20.5-51.1); MEAN CORPUSCULAR HEMOGLOBIN 31 pg (27-31); MEAN CORPUSCULAR HGB CONC 32 g/dL (33-37); MEAN CORPUSCULAR VOLUME 94.8 fL (80-94); MONOCYTES # (AUTO) 1.3 K/uL (0.8-1.0); MONOCYTES % (AUTO) 7.9 % (1.7-9.3); NEUTROPHILS # (AUTO) 13.7 K/uL (1.8-7.7); PLATELET COUNT (AUTO) 161 K/uL (140-450); RED BLOOD CELL COUNT(AUTO) 4.42 MIL/uL (4.20-6.10)
[2023-04-28 07:12] LABS: ANION GAP 11.7 (8-16); CALCIUM 8.4 mg/dL (8.5-10.1); CARBON DIOXIDE 34.4 mmol/L (21-32); POTASSIUM 3.1 mmol/L (3.5-5.1); TOTAL BILIRUBIN 0.2 mg/dL (0.0-1.0); TOTAL PROTEIN, SERUM 7.1 g/dL (6.4-8.2)
[2023-04-28 07:24] LABS: NEUTROPHILS % (AUTO) 84.8 % (42.2-75.2); WHITE BLOOD COUNT (AUTO) 16.1 K/uL (4.8-10.8)
[2023-04-28] MEDS: DIVALPROEX 500 MG TABEC PO SCH ×2 (09:37→20:37)
[2023-04-28] MEDS: sulfaSALAzine 500 MG TAB PO SCH ×4 (09:37→20:39)
[2023-04-28] MEDS: PANTOPRAZOLE 40 MG TABEC PO SCH ×2 (09:37→20:38)
[2023-04-28] MEDS: FERROUS SULFATE 325 MG TABEC PO SCH ×2 (09:38→17:54)
[2023-04-28] MEDS: carBAMazepine 200 MG TAB PO SCH ×2 (09:38→20:38)
[2023-04-28] MEDS: VITAMIN D 400 IU TAB PO SCH (09:38)
[2023-04-28] MEDS: methylPREDNISolone SS 40 MG/ML VIAL IVP SCH ×2 (09:38→20:37)
[2023-04-28] MEDS: ASCORBIC ACID 500 MG TAB PO SCH ×2 (09:40→20:38)
[2023-04-28] MEDS ORDERED: POTASSIUM CHLORIDE 40 MEQ in NACL 0.9% 1,000 ML IV SCH (11:15)
[2023-04-28] MEDS ORDERED: KCL 20 MEQ IN 100 mL PREMIX 200 ML IV SCH (11:30)
[2023-04-28] MEDS: MONTELUKAST SODIUM 10 MG TAB PO SCH (17:54)
[2023-04-29] VITALS (10 sets, daily range): BP systolic 111–128; BP diastolic 64–80; PULSE 85–115; RESP 18–21; TEMP 97–98.6; O2SAT 96–99
[2023-04-29] MEDS: ALBUTEROL SULFATE/IPRATROPIU 3 ML SOL IH SCH ×4 (00:47→19:14)
[2023-04-29] MEDS: DILTIAZEM 60 MG TAB PO SCH ×2 (05:54→14:04)
[2023-04-29] MEDS: DEXT 5% / NACL 0.45% 1,000 ML IV SCH ×2 (06:05→19:05)
[2023-04-29 06:59] LABS: BASOPHILS % (AUTO) 0.1 % (0.0-2.0); HEMATOCRIT 41.2 % (36-52); HEMOGLOBIN 13.2 g/dL (12.0-18.0); LYMPHOCYTES # (AUTO) 1.5 K/uL (2.0-11.5); LYMPHOCYTES % (AUTO) 12.6 % (20.5-51.1); MEAN CORPUSCULAR HEMOGLOBIN 30 pg (27-31); MEAN CORPUSCULAR HGB CONC 32 g/dL (33-37); MEAN CORPUSCULAR VOLUME 94.8 fL (80-94); MONOCYTES # (AUTO) 0.8 K/uL (0.8-1.0); MONOCYTES % (AUTO) 6.4 % (1.7-9.3); NEUTROPHILS # (AUTO) 9.6 K/uL (1.8-7.7); NEUTROPHILS % (AUTO) 80.9 % (42.2-75.2); PLATELET COUNT (AUTO) 149 K/uL (140-450); RED BLOOD CELL COUNT(AUTO) 4.35 MIL/uL (4.20-6.10); RED CELL DISTRIBUTION WIDTH 12.9 % (11.6-13.7); WHITE BLOOD COUNT (AUTO) 11.9 K/uL (4.8-10.8)
[2023-04-29 07:16] LABS: ANION GAP 8.7 (8-16); CALCIUM 8.3 mg/dL (8.5-10.1); CARBON DIOXIDE 34.9 mmol/L (21-32); CREATININE 0.7 mg/dL (0.6-1.3); POTASSIUM 3.6 mmol/L (3.5-5.1)
[2023-04-29] MEDS: methylPREDNISolone SS 40 MG/ML VIAL IVP SCH (09:05)
[2023-04-29] MEDS: VITAMIN D 400 IU TAB PO SCH (09:05)
[2023-04-29] MEDS: DIVALPROEX 500 MG TABEC PO SCH (09:05)
[2023-04-29] MEDS: carBAMazepine 200 MG TAB PO SCH (09:05)
[2023-04-29] MEDS: sulfaSALAzine 500 MG TAB PO SCH ×3 (09:06→17:00)
[2023-04-29] MEDS: ASCORBIC ACID 500 MG TAB PO SCH (09:06)
[2023-04-29] MEDS: FERROUS SULFATE 325 MG TABEC PO SCH ×2 (09:06→17:00)
[2023-04-29] MEDS: PANTOPRAZOLE 40 MG TABEC PO SCH (09:06)
[2023-04-29] MEDS ORDERED: CARB200T7 PO (12:14)
[2023-04-29] MEDS ORDERED: DIVA500E2 PO (12:14)
[2023-04-29] MEDS ORDERED: DILT60TA97 PO (12:14)
[2023-04-29] MEDS ORDERED: VITD400 PO (12:14)
[2023-04-29] MEDS ORDERED: SULF500T6 PO (12:14)
[2023-04-29] MEDS: MONTELUKAST SODIUM 10 MG TAB PO SCH (17:00)
== END 2023-04-29 20:20 | disposition short-term general hospital (02) | DRG 720 ==
LOC: MED 12:45 → MTU 16:54
PROVIDERS: ADMIT Preventive Medicine Preventive Medicine/Occupational Environmental Medicine; ATTEND Preventive Medicine Preventive Medicine/Occupational Environmental Medicine
PROC: 5A09357 Assistance with Respiratory Ventilation, Less than 24 Consecutive Hours, Continuous Positive Airway Pressure (ICD-10-PCS; principal; 2023-04-27)
DX: A41.9 Sepsis, unspecified organism (principal); J96.01 Acute respiratory failure with hypoxia; J69.0 Pneumonitis due to inhalation of food and vomit; J44.0 Chronic obstructive pulmonary disease with (acute) lower respiratory infection; J45.901 Unspecified asthma with (acute) exacerbation; E87.0 Hyperosmolality and hypernatremia; J44.1 Chronic obstructive pulmonary disease with (acute) exacerbation; Q24.0 Dextrocardia; K21.9 Gastro-esophageal reflux disease without esophagitis; F79 Unspecified intellectual disabilities; G40.909 Epilepsy, unspecified, not intractable, without status epilepticus; G47.00 Insomnia, unspecified; M41.9 Scoliosis, unspecified; E83.52 Hypercalcemia; D64.9 Anemia, unspecified; R73.9 Hyperglycemia, unspecified; Z20.822 Contact with and (suspected) exposure to COVID-19
CPT/HCPCS: 36415; 36600; 71045; 80048; 80053; 81001; 82803; 82948; 83605; 83735; 83880; 84100; 84484; 85025; 85610; 85651; 85730; 86140; 87040; 87081; 87086; 93005; 94640; 94660; 96365; 96375; 99285; J0456; J1956; J2001; J2060; J2543; J2920; J2930; J3370; J3372; J3480; J7030; J7060; J7613; J7644

== ENCOUNTER 2023-07-03 16:18 | Inpatient (IN) | payer MEDICAID ==
[~2023-07-03] VITALS: Ht 167.6 cm; Wt 66.7 kg
[~2023-07-03 16:18] MED LIST changes: -CARB200T1 PO; +CARB200T7 PO; +DILT60TA97 PO; +DIVA500E2 PO; +SULF500T6 PO; +VITD400 PO
[2023-07-03 16:20] VITALS: BP 131/79; PULSE 110; RESP 22; TEMP 98.6; O2SAT 96
[2023-07-03] MEDS ORDERED: NACL 0.9% 1,000 ML IV ONE (16:40)
[2023-07-03 16:59] LABS: BASOPHILS # (AUTO) 0.2 K/uL (0.00-0.22); EOSINOPHILS # (AUTO) 0.7 K/uL (0-0.4); HEMOGLOBIN 15.1 g/dL (12.0-18.0); MEAN CORPUSCULAR HGB CONC 34 g/dL (33-37); MONOCYTES # (AUTO) 0.6 K/uL (0.8-1.0); NEUTROPHILS # (AUTO) 1.9 K/uL (1.8-7.7); NEUTROPHILS % (AUTO) 36.9 % (42.2-75.2); RED CELL DISTRIBUTION WIDTH 12.7 % (11.6-13.7)
[2023-07-03 17:12] LABS: BASOPHILS % (AUTO) 3.1 % (0.0-2.0); EOSINOPHILS % (AUTO) 13.9 % (0.0-4.0); HEMATOCRIT 44.8 % (36-52); LYMPHOCYTES # (AUTO) 1.8 K/uL (2.0-11.5); LYMPHOCYTES % (AUTO) 34.8 % (20.5-51.1); MEAN CORPUSCULAR HEMOGLOBIN 32 pg (27-31); MEAN CORPUSCULAR VOLUME 93.5 fL (80-94); MONOCYTES % (AUTO) 11.3 % (1.7-9.3); PLATELET COUNT (AUTO) 274 K/uL (140-450); RED BLOOD CELL COUNT(AUTO) 4.79 MIL/uL (4.20-6.10); WHITE BLOOD COUNT (AUTO) 5.1 K/uL (4.8-10.8)
[2023-07-03 17:21] LABS: FLU A ANTIGEN negative (NEGATIVE); FLU B ANTIGEN NEGATIVE (NEGATIVE)
[2023-07-03 17:22] LABS: ALANINE AMINOTRANSFERASE 16 U/L (12-78); ALBUMIN 3.6 g/dL (3.4-5.0); ALKALINE PHOSPHATASE 65 U/L (50-136); ANION GAP 11.7 (8-16); ASPARTATE AMINOTRANSFERASE 16 U/L (15-37); CALCIUM 8.7 mg/dL (8.5-10.1); CARBON DIOXIDE 36.9 mmol/L (21-32); CHLORIDE 100 mmol/L (98-107); CREATININE 0.7 mg/dL (0.6-1.3); GFR ARICAN-AMERICAN 157 mL/min (>90); GFR NON ARICAN-AMERICAN 130 mL/min (>90); GLUCOSE 117 mg/dL (74-106); POTASSIUM 4.6 mmol/L (3.5-5.1); SODIUM SERUM 144 mmol/L (136-145); TOTAL BILIRUBIN 0.1 mg/dL (0.0-1.0); TOTAL PROTEIN, SERUM 8.8 g/dL (6.4-8.2); UREA NITROGEN, BLOOD 19 mg/dL (7-18)
[2023-07-03] MEDS ORDERED: NACL 0.9% 1,000 ML IV SCH (22:10)
[2023-07-03] MEDS ORDERED: AZITHROMYCIN 250 MG in DEXTROSE 5% 250 ML IV SCH (22:10)
[2023-07-03 22:15] VITALS: O2SAT 97
[2023-07-03] MEDS ORDERED: ONDANSETRON 4 MG/2 ML VIAL IVP PRN (22:20)
[2023-07-03 23:07] LABS: ANION GAP 8.5 (8-16); CALCIUM 8.7 mg/dL (8.5-10.1); CREATININE 0.7 mg/dL (0.6-1.3); POTASSIUM 4.5 mmol/L (3.5-5.1)
[2023-07-04] VITALS (12 sets, daily range): BP systolic 102–104; BP diastolic 68–71; PULSE 64–98; RESP 16–24; TEMP 97.8–98.4; O2SAT 92–97
[2023-07-04] MEDS: ALBUTEROL SULFATE/IPRATROPIU 3 ML SOL IH PRN ×2 (05:46→11:49)
[2023-07-04] MEDS: FAMOTIDINE 20 MG TAB PO SCH ×2 (09:00→09:47)
[2023-07-04] MEDS: carBAMazepine 200 MG TAB PO SCH ×3 (09:00→23:00)
[2023-07-04] MEDS: DIVALPROEX 500 MG TABEC PO SCH ×3 (09:00→23:00)
[2023-07-04] MEDS ORDERED: ALBUTEROL SULFATE/IPRATROPIU 3 ML SOL IH PRN (09:00)
[2023-07-04] MEDS: FERROUS SULFATE 325 MG TABEC PO SCH ×2 (09:00→09:47)
[2023-07-04] MEDS ORDERED: IPRATROPIUM 0.02% 0.5 MG/2.5 ML NEBU INH PRN (09:00)
[2023-07-04] MEDS: VITAMIN D 400 IU TAB PO SCH ×2 (09:00→09:46)
[2023-07-04] MEDS: ASCORBIC ACID 500 MG TAB PO SCH ×2 (09:00→09:48)
[2023-07-04 09:38] LABS: BASOPHILS # (AUTO) 0.1 K/uL (0.00-0.22); BASOPHILS % (AUTO) 1.3 % (0.0-2.0); EOSINOPHILS # (AUTO) 0.8 K/uL (0-0.4); EOSINOPHILS % (AUTO) 10.7 % (0.0-4.0); HEMATOCRIT 43.7 % (36-52); HEMOGLOBIN 14.4 g/dL (12.0-18.0); LYMPHOCYTES # (AUTO) 2.7 K/uL (2.0-11.5); LYMPHOCYTES % (AUTO) 36.4 % (20.5-51.1); MEAN CORPUSCULAR HEMOGLOBIN 31 pg (27-31); MEAN CORPUSCULAR HGB CONC 33 g/dL (33-37); MEAN CORPUSCULAR VOLUME 95.2 fL (80-94); MONOCYTES # (AUTO) 0.9 K/uL (0.8-1.0); NEUTROPHILS # (AUTO) 2.9 K/uL (1.8-7.7); NEUTROPHILS % (AUTO) 39.6 % (42.2-75.2); PLATELET COUNT (AUTO) 261 K/uL (140-450); RED BLOOD CELL COUNT(AUTO) 4.59 MIL/uL (4.20-6.10); WHITE BLOOD COUNT (AUTO) 7.3 K/uL (4.8-10.8)
[2023-07-04 09:50] LABS: ANION GAP 8.5 (8-16); CALCIUM 8.7 mg/dL (8.5-10.1); CARBON DIOXIDE 36.8 mmol/L (21-32); CREATININE 0.6 mg/dL (0.6-1.3); POTASSIUM 5.3 mmol/L (3.5-5.1)
[2023-07-04] MEDS ORDERED: FUROSEMIDE 20 MG/2 ML VIAL IVP SCH (11:15)
[2023-07-04] MEDS: DILTIAZEM 60 MG TAB PO SCH ×2 (13:00→23:00)
[2023-07-04] MEDS: ALBUTEROL SULFATE/IPRATROPIU 3 ML SOL IH SCH ×2 (13:47→20:12)
[2023-07-04] MEDS: ACETYLCYSTEINE 10% (100 MG/ML) 100 MG/ML VIAL INH SCH ×2 (13:47→20:13)
[2023-07-04] MEDS: guaiFENesin 600 MG TABER PO SCH (23:00)
[2023-07-04] MEDS: traZODone 50 MG TAB PO SCH (23:00)
[2023-07-05] VITALS (10 sets, daily range): BP systolic 107–148; BP diastolic 59–82; PULSE 83–108; RESP 17–20; TEMP 97.8–98.6; O2SAT 88–97
[2023-07-05] MEDS: ACETYLCYSTEINE 10% (100 MG/ML) 100 MG/ML VIAL INH SCH ×4 (00:47→18:52)
[2023-07-05] MEDS: ALBUTEROL SULFATE/IPRATROPIU 3 ML SOL IH SCH ×4 (00:47→18:52)
[2023-07-05] MEDS: DILTIAZEM 60 MG TAB PO SCH ×3 (05:00→20:33)
[2023-07-05 08:28] LABS: BASOPHILS # (AUTO) 0.2 K/uL (0.00-0.22); BASOPHILS % (AUTO) 1.6 % (0.0-2.0); EOSINOPHILS % (AUTO) 10.2 % (0.0-4.0); HEMATOCRIT 46.4 % (36-52); HEMOGLOBIN 15.6 g/dL (12.0-18.0); LYMPHOCYTES # (AUTO) 1.8 K/uL (2.0-11.5); LYMPHOCYTES % (AUTO) 18.5 % (20.5-51.1); MEAN CORPUSCULAR HEMOGLOBIN 31 pg (27-31); MEAN CORPUSCULAR HGB CONC 34 g/dL (33-37); MEAN CORPUSCULAR VOLUME 93.2 fL (80-94); MONOCYTES # (AUTO) 1.2 K/uL (0.8-1.0); MONOCYTES % (AUTO) 12.4 % (1.7-9.3); NEUTROPHILS # (AUTO) 5.6 K/uL (1.8-7.7); NEUTROPHILS % (AUTO) 57.3 % (42.2-75.2); PLATELET COUNT (AUTO) 268 K/uL (140-450); RED BLOOD CELL COUNT(AUTO) 4.98 MIL/uL (4.20-6.10); RED CELL DISTRIBUTION WIDTH 12.8 % (11.6-13.7); WHITE BLOOD COUNT (AUTO) 9.7 K/uL (4.8-10.8)
[2023-07-05 08:59] LABS: ANION GAP 11.5 (8-16); CALCIUM 9.4 mg/dL (8.5-10.1); CARBON DIOXIDE 35.3 mmol/L (21-32); CREATININE 0.8 mg/dL (0.6-1.3); POTASSIUM 3.8 mmol/L (3.5-5.1)
[2023-07-05] MEDS: guaiFENesin 600 MG TABER PO SCH ×2 (09:00→20:34)
[2023-07-05] MEDS: FERROUS SULFATE 325 MG TABEC PO SCH (09:00)
[2023-07-05] MEDS: DIVALPROEX 500 MG TABEC PO SCH ×2 (09:00→20:34)
[2023-07-05] MEDS: VITAMIN D 400 IU TAB PO SCH (09:00)
[2023-07-05] MEDS: FAMOTIDINE 20 MG TAB PO SCH (09:00)
[2023-07-05] MEDS: carBAMazepine 200 MG TAB PO SCH ×2 (09:00→20:35)
[2023-07-05] MEDS: ASCORBIC ACID 500 MG TAB PO SCH (09:00)
[2023-07-05] MEDS: traZODone 50 MG TAB PO SCH (20:34)
[2023-07-06 00:06] VITALS: PULSE 96; RESP 19; O2SAT 89
[2023-07-06] MEDS: ACETYLCYSTEINE 10% (100 MG/ML) 100 MG/ML VIAL INH SCH ×3 (00:06→14:38)
[2023-07-06] MEDS: ALBUTEROL SULFATE/IPRATROPIU 3 ML SOL IH SCH ×3 (00:06→14:38)
[2023-07-06 04:00] VITALS: BP 105/71; PULSE 99; RESP 18; TEMP 97.4; O2SAT 96
[2023-07-06] MEDS: DILTIAZEM 60 MG TAB PO SCH ×2 (05:00→13:00)
[2023-07-06 07:09] LABS: BASOPHILS # (AUTO) 0.2 K/uL (0.00-0.22); BASOPHILS % (AUTO) 2.6 % (0.0-2.0); EOSINOPHILS # (AUTO) 1.1 K/uL (0-0.4); EOSINOPHILS % (AUTO) 14.7 % (0.0-4.0); HEMATOCRIT 44.5 % (36-52); LYMPHOCYTES # (AUTO) 2.5 K/uL (2.0-11.5); MEAN CORPUSCULAR HEMOGLOBIN 31 pg (27-31); MEAN CORPUSCULAR HGB CONC 34 g/dL (33-37); MEAN CORPUSCULAR VOLUME 92.9 fL (80-94); MONOCYTES # (AUTO) 1.3 K/uL (0.8-1.0); MONOCYTES % (AUTO) 16.1 % (1.7-9.3); NEUTROPHILS # (AUTO) 2.7 K/uL (1.8-7.7); NEUTROPHILS % (AUTO) 34.6 % (42.2-75.2); PLATELET COUNT (AUTO) 248 K/uL (140-450); RED BLOOD CELL COUNT(AUTO) 4.79 MIL/uL (4.20-6.10); RED CELL DISTRIBUTION WIDTH 12.7 % (11.6-13.7); WHITE BLOOD COUNT (AUTO) 7.8 K/uL (4.8-10.8)
[2023-07-06 07:30] VITALS: PULSE 92; RESP 20; O2SAT 92
[2023-07-06 07:30] LABS: ANION GAP 11.4 (8-16); CALCIUM 9.4 mg/dL (8.5-10.1); CARBON DIOXIDE 35.4 mmol/L (21-32); CREATININE 0.7 mg/dL (0.6-1.3); POTASSIUM 3.8 mmol/L (3.5-5.1)
[2023-07-06 08:00] VITALS: RESP 18
[2023-07-06] MEDS: guaiFENesin 600 MG TABER PO SCH (09:00)
[2023-07-06] MEDS: VITAMIN D 400 IU TAB PO SCH (09:00)
[2023-07-06] MEDS: FAMOTIDINE 20 MG TAB PO SCH (09:00)
[2023-07-06] MEDS: DIVALPROEX 500 MG TABEC PO SCH (09:00)
[2023-07-06] MEDS: carBAMazepine 200 MG TAB PO SCH (09:00)
[2023-07-06] MEDS: ASCORBIC ACID 500 MG TAB PO SCH (09:00)
[2023-07-06] MEDS: FERROUS SULFATE 325 MG TABEC PO SCH (09:00)
[2023-07-06] MEDS ORDERED: MUC104 INH (10:26)
[2023-07-06 14:39] VITALS: PULSE 110; RESP 20; O2SAT 90
== END 2023-07-06 15:03 | disposition home or self-care (01) | DRG 133 ==
LOC: MED 16:18 → MTU 19:48
PROVIDERS: ADMIT Student in an Organized Health Care Education/Training Program; ATTEND Student in an Organized Health Care Education/Training Program
PROC: 5A0935A Assistance with Respiratory Ventilation, Less than 24 Consecutive Hours, High Flow/Velocity Cannula (ICD-10-PCS; principal; 2023-07-03)
DX: J96.01 Acute respiratory failure with hypoxia (principal); I50.9 Heart failure, unspecified; E87.5 Hyperkalemia; F79 Unspecified intellectual disabilities; Z20.822 Contact with and (suspected) exposure to COVID-19; J45.909 Unspecified asthma, uncomplicated; I49.9 Cardiac arrhythmia, unspecified
CPT/HCPCS: 36415; 71045; 80048; 80053; 83880; 84484; 85025; 85379; 87081; 94640; 96360; 99291; J1940; J7644; Q0092

== ENCOUNTER 2023-07-16 15:28 | Inpatient (IN) | payer MEDICAID ==
[~2023-07-16] VITALS: Ht 172.7 cm; Wt 72.6 kg
[~2023-07-16 15:28] MED LIST changes: +MUC104 INH
[2023-07-16 15:38] VITALS: BP 104/62; PULSE 97; RESP 22; TEMP 97.8; O2SAT 97
[2023-07-16] MEDS ORDERED: methylPREDNISolone SS 125 MG/2 ML VIAL IM ONE (15:40)
[2023-07-16] MEDS: ALBUTEROL SULFATE/IPRATROPIU 3 ML SOL IH ONE ×2 (16:01→19:42)
[2023-07-16] MEDS: methylPREDNISolone SS 125 MG/2 ML VIAL IVP ONE (16:30)
[2023-07-16 16:32] LABS: BASOPHILS # (AUTO) 0.1 K/uL (0.00-0.22); BASOPHILS % (AUTO) 0.5 % (0.0-2.0); EOSINOPHILS # (AUTO) 0.5 K/uL (0-0.4); EOSINOPHILS % (AUTO) 4.2 % (0.0-4.0); HEMATOCRIT 42.5 % (36-52); HEMOGLOBIN 14.4 g/dL (12.0-18.0); LYMPHOCYTES # (AUTO) 1.3 K/uL (2.0-11.5); LYMPHOCYTES % (AUTO) 12.1 % (20.5-51.1); MEAN CORPUSCULAR HEMOGLOBIN 32 pg (27-31); MEAN CORPUSCULAR HGB CONC 34 g/dL (33-37); MEAN CORPUSCULAR VOLUME 93.6 fL (80-94); MONOCYTES # (AUTO) 0.6 K/uL (0.8-1.0); MONOCYTES % (AUTO) 5.7 % (1.7-9.3); NEUTROPHILS # (AUTO) 8.4 K/uL (1.8-7.7); NEUTROPHILS % (AUTO) 77.5 % (42.2-75.2); PLATELET COUNT (AUTO) 227 K/uL (140-450); RED BLOOD CELL COUNT(AUTO) 4.54 MIL/uL (4.20-6.10); RED CELL DISTRIBUTION WIDTH 12.9 % (11.6-13.7); WHITE BLOOD COUNT (AUTO) 10.9 K/uL (4.8-10.8)
[2023-07-16 16:44] LABS: FLU A ANTIGEN negative (NEGATIVE); FLU B ANTIGEN NEGATIVE (NEGATIVE)
[2023-07-16 16:51] LABS: ALBUMIN 3.5 g/dL (3.4-5.0); ANION GAP 8.7 (8-16); CALCIUM 8.7 mg/dL (8.5-10.1); CARBON DIOXIDE 35.8 mmol/L (21-32); CREATININE 0.8 mg/dL (0.6-1.3); POTASSIUM 4.5 mmol/L (3.5-5.1); TOTAL BILIRUBIN 0.2 mg/dL (0.0-1.0); TOTAL PROTEIN, SERUM 8.9 g/dL (6.4-8.2)
[2023-07-16] MEDS ORDERED: ALBUTEROL SULFATE/IPRATROPIU 3 ML SOL IH ONE (19:40)
[2023-07-16 19:45] VITALS: PULSE 87; RESP 16; O2SAT 97
[2023-07-16] MEDS ORDERED: ACETAMINOPHEN 325 MG TAB PO PRN (21:30)
[2023-07-16] MEDS ORDERED: HYDROcodone/APAP 5/325 MG 1 TAB TAB PO PRN (21:30)
[2023-07-16] MEDS ORDERED: traMADol 50 MG TAB PO PRN (21:30)
[2023-07-16] MEDS ORDERED: ONDANSETRON 4 MG/2 ML VIAL IVP PRN (21:30)
[2023-07-17] VITALS (7 sets, daily range): PULSE 80–91; RESP 16–18; O2SAT 92–97
[2023-07-17] MEDS: ACETYLCYSTEINE 10% (100 MG/ML) 100 MG/ML VIAL INH SCH (00:49)
[2023-07-17] MEDS: LEVALBUTEROL 0.63 MG/3 ML NEBU INH SCH (00:49)
[2023-07-17] MEDS: IPRATROPIUM 0.02% 0.5 MG/2.5 ML NEBU INH SCH (00:49)
[2023-07-17] MEDS: DILTIAZEM 60 MG TAB PO SCH (06:00)
[2023-07-17] MEDS ORDERED: CRUSHER, PILL MC ONE (06:06)
[2023-07-17 06:42] LABS: BASOPHILS % (AUTO) 0.6 % (0.0-2.0); EOSINOPHILS % (AUTO) 0.2 % (0.0-4.0); HEMATOCRIT 41.6 % (36-52); HEMOGLOBIN 13.9 g/dL (12.0-18.0); LYMPHOCYTES # (AUTO) 2.6 K/uL (2.0-11.5); LYMPHOCYTES % (AUTO) 38.3 % (20.5-51.1); MEAN CORPUSCULAR HEMOGLOBIN 31 pg (27-31); MEAN CORPUSCULAR HGB CONC 34 g/dL (33-37); MEAN CORPUSCULAR VOLUME 92.9 fL (80-94); MONOCYTES # (AUTO) 0.8 K/uL (0.8-1.0); NEUTROPHILS # (AUTO) 3.3 K/uL (1.8-7.7); NEUTROPHILS % (AUTO) 48.9 % (42.2-75.2); PLATELET COUNT (AUTO) 225 K/uL (140-450); RED BLOOD CELL COUNT(AUTO) 4.48 MIL/uL (4.20-6.10); RED CELL DISTRIBUTION WIDTH 12.6 % (11.6-13.7); WHITE BLOOD COUNT (AUTO) 6.7 K/uL (4.8-10.8)
[2023-07-17 06:57] LABS: ANION GAP 10.4 (8-16); CALCIUM 9.2 mg/dL (8.5-10.1); CARBON DIOXIDE 35.8 mmol/L (21-32); CREATININE 0.8 mg/dL (0.6-1.3); POTASSIUM 4.2 mmol/L (3.5-5.1)
[2023-07-17 07:06] LABS: MAGNESIUM 1.9 mg/dL (1.8-2.4); PHOSPHORUS 3.8 mg/dL (2.5-4.9)
[2023-07-17] MEDS ORDERED: NON-FORMULARY ITEM (Omeprazole* (Prilosec*) 20 MG) PO SCH (09:00)
[2023-07-17] MEDS: BUDESONIDE 0.5 MG/2 ML NEBU INH SCH (10:38)
[2023-07-17] MEDS ORDERED: methylPREDNISolone SS 40 MG/ML VIAL ONE (10:51)
[2023-07-17] MEDS: VITAMIN D 400 IU TAB PO SCH (11:05)
[2023-07-17] MEDS: methylPREDNISolone SS 40 MG/ML VIAL IVP SCH (11:16)
[2023-07-17] MEDS: sulfaSALAzine 500 MG TAB PO SCH (11:17)
[2023-07-17] MEDS: DIVALPROEX 500 MG TABEC PO SCH (11:18)
[2023-07-17] MEDS: FERROUS SULFATE 325 MG TABEC PO SCH (11:19)
[2023-07-17] MEDS: PANTOPRAZOLE 40 MG TABEC PO SCH (11:20)
[2023-07-17] MEDS: carBAMazepine 200 MG TAB PO SCH (11:20)
[2023-07-17] MEDS: ASCORBIC ACID 500 MG TAB PO SCH (11:20)
[2023-07-17] MEDS: DEXT 5% / NACL 0.45% 1,000 ML IV SCH (13:57)
[2023-07-17] MEDS: MONTELUKAST SODIUM 10 MG TAB PO SCH (17:00)
[2023-07-17] MEDS: LORazepam 2 MG/ML VIAL IVP PRN (21:15)
[2023-07-17] MEDS: traZODone 50 MG TAB PO SCH (21:16)
[2023-07-18] VITALS (14 sets, daily range): BP systolic 99–139; BP diastolic 54–97; PULSE 69–96; RESP 18–20; TEMP 97.3–98.2; O2SAT 93–98
[2023-07-18 08:09] LABS: BASOPHILS # (AUTO) 0.1 K/uL (0.00-0.22); BASOPHILS % (AUTO) 1.3 % (0.0-2.0); EOSINOPHILS # (AUTO) 0.1 K/uL (0-0.4); EOSINOPHILS % (AUTO) 1.6 % (0.0-4.0); HEMATOCRIT 38.5 % (36-52); HEMOGLOBIN 12.9 g/dL (12.0-18.0); LYMPHOCYTES # (AUTO) 2.6 K/uL (2.0-11.5); LYMPHOCYTES % (AUTO) 41.8 % (20.5-51.1); MEAN CORPUSCULAR HEMOGLOBIN 31 pg (27-31); MEAN CORPUSCULAR HGB CONC 34 g/dL (33-37); MEAN CORPUSCULAR VOLUME 92.7 fL (80-94); MONOCYTES # (AUTO) 0.7 K/uL (0.8-1.0); MONOCYTES % (AUTO) 11.9 % (1.7-9.3); NEUTROPHILS # (AUTO) 2.7 K/uL (1.8-7.7); NEUTROPHILS % (AUTO) 43.4 % (42.2-75.2); PLATELET COUNT (AUTO) 225 K/uL (140-450); RED BLOOD CELL COUNT(AUTO) 4.15 MIL/uL (4.20-6.10); RED CELL DISTRIBUTION WIDTH 12.9 % (11.6-13.7); WHITE BLOOD COUNT (AUTO) 6.1 K/uL (4.8-10.8)
[2023-07-18 09:01] LABS: ANION GAP 11.2 (8-16); CARBON DIOXIDE 32.6 mmol/L (21-32); CREATININE 0.5 mg/dL (0.6-1.3); POTASSIUM 3.8 mmol/L (3.5-5.1)
[2023-07-19] VITALS (13 sets, daily range): BP systolic 102–158; BP diastolic 60–90; PULSE 56–104; RESP 17–20; TEMP 97.2–98.6; O2SAT 88–100
[2023-07-19] MEDS: IPRATROPIUM 0.02% 0.5 MG/2.5 ML NEBU INH SCH (13:47)
[2023-07-19] MEDS ORDERED: Z-GUARD PASTE TP PRN (17:05)
[2023-07-19] MEDS: Z-GUARD PASTE TP ONE (17:13)
[2023-07-20 01:13] VITALS: PULSE 88; RESP 19; O2SAT 92
[2023-07-20 04:00] VITALS: BP 95/58; PULSE 94; RESP 18; TEMP 97.3; O2SAT 98
[2023-07-20 05:30] LABS: BASOPHILS # (AUTO) 0.3 K/uL (0.00-0.22); BASOPHILS % (AUTO) 3.4 % (0.0-2.0); EOSINOPHILS # (AUTO) 0.2 K/uL (0-0.4); EOSINOPHILS % (AUTO) 2.3 % (0.0-4.0); HEMATOCRIT 44.2 % (36-52); HEMOGLOBIN 14.9 g/dL (12.0-18.0); LYMPHOCYTES # (AUTO) 2.4 K/uL (2.0-11.5); LYMPHOCYTES % (AUTO) 30.3 % (20.5-51.1); MEAN CORPUSCULAR HEMOGLOBIN 31 pg (27-31); MEAN CORPUSCULAR HGB CONC 34 g/dL (33-37); MEAN CORPUSCULAR VOLUME 92.5 fL (80-94); MONOCYTES # (AUTO) 1.3 K/uL (0.8-1.0); MONOCYTES % (AUTO) 16.6 % (1.7-9.3); NEUTROPHILS # (AUTO) 3.7 K/uL (1.8-7.7); NEUTROPHILS % (AUTO) 47.4 % (42.2-75.2); PLATELET COUNT (AUTO) 262 K/uL (140-450); RED BLOOD CELL COUNT(AUTO) 4.78 MIL/uL (4.20-6.10); RED CELL DISTRIBUTION WIDTH 12.7 % (11.6-13.7); WHITE BLOOD COUNT (AUTO) 7.8 K/uL (4.8-10.8)
[2023-07-20 06:58] LABS: ALBUMIN 3.5 g/dL (3.4-5.0); CALCIUM 8.9 mg/dL (8.5-10.1); CARBON DIOXIDE 32.8 mmol/L (21-32); CREATININE 0.7 mg/dL (0.6-1.3); POTASSIUM 3.8 mmol/L (3.5-5.1); TOTAL BILIRUBIN 0.2 mg/dL (0.0-1.0); TOTAL PROTEIN, SERUM 9.1 g/dL (6.4-8.2)
[2023-07-20 07:23] VITALS: PULSE 115; RESP 18; O2SAT 91
[2023-07-20 08:00] VITALS: BP 103/75; PULSE 56; PULSE 96; RESP 19; RESP 20; TEMP 97.4; O2SAT 96; O2SAT 98
[2023-07-20 12:18] VITALS: PULSE 102; RESP 16; O2SAT 93
[2023-07-20] MEDS ORDERED: DOXY-690 PO (12:46)
[2023-07-20] MEDS ORDERED: PRED10TA5 PO (12:46)
[2023-07-20] MEDS ORDERED: PRED20TA5 PO (12:46)
== END 2023-07-20 17:15 | disposition home or self-care (01) | DRG 141 ==
LOC: MED 15:28 → MMU 18:11 → MTU 07-17 06:09
PROVIDERS: ADMIT Preventive Medicine Preventive Medicine/Occupational Environmental Medicine; ATTEND Preventive Medicine Preventive Medicine/Occupational Environmental Medicine
DX: J45.901 Unspecified asthma with (acute) exacerbation (principal); J96.01 Acute respiratory failure with hypoxia; J69.0 Pneumonitis due to inhalation of food and vomit; K21.9 Gastro-esophageal reflux disease without esophagitis; M41.9 Scoliosis, unspecified; G40.909 Epilepsy, unspecified, not intractable, without status epilepticus; G80.9 Cerebral palsy, unspecified; Z20.822 Contact with and (suspected) exposure to COVID-19; I10 Essential (primary) hypertension; J20.9 Acute bronchitis, unspecified; G47.00 Insomnia, unspecified; E55.9 Vitamin D deficiency, unspecified; D64.9 Anemia, unspecified
CPT/HCPCS: 36415; 71045; 80048; 80053; 83735; 83880; 84100; 84484; 85025; 85651; 86140; 87081; 92526; 93005; 94640; 96374; 99291; J0696; J2060; J2920; J2930; J7060; J7614; J7626; J7644; Q0092